=== PATIENT | female | born 1965 | race Two or more races ===

== ENCOUNTER 2022-08-04 14:46 | Inpatient (IN) | payer MEDICAID, OTHER ==
[~2022-08-04] VITALS: Ht 170.2 cm; Wt 63.5 kg
[2022-08-04] MEDS ORDERED: SODIUM CHLORIDE 0.9% 1000ML BAG (SEPSIS BOLUS) IV ONE (15:15)
[2022-08-04] MEDS ORDERED: PIPERACILLIN/TAZ 3.375G PREMIX 50 ML IV ONE (15:15)
[2022-08-04] MEDS ORDERED: VANCOMYCIN 1G PREMIX 200 ML IV ONE (15:15)
[2022-08-04] MEDS ORDERED: ONDANSETRON HCL 4MG/2ML INJ IV ONE (15:15)
[2022-08-04] MEDS ORDERED: ASPIRIN 81MG TABLET PO ONE (15:15)
[2022-08-04 16:05] LABS: HEMATOCRIT. 40.7 % (36.0-48.0); HEMOGLOBIN. 13.1 g/dL (12.0-16.0); MEAN CORPUSCULAR HEMOGLOBIN 29.6 pg (28.0-32.0); MEAN CORPUSCULAR VOLUME 91.5 fL (81.0-99.0); MEAN PLATELET VOLUME 8.3 fl (7.4-10.4); PLATELET 80 x1000/uL (130-400); RED BLOOD CELL COUNT 4.44 mill/uL (4.2-5.4); RED CELL DISTRIBUTION WIDTH 18.3 % (11.6-14.6)
[2022-08-04 16:07] LABS: INR 1.4; PARTIAL THROMBOPLASTIN TIME 41.2 sec (23.4-31.0); PROTHROMBIN TIME 15.1 sec (9.6-11.0)
[2022-08-04 16:13] LABS: CHLORIDE 85 mEq/L (98-107)
[2022-08-04] MEDS ORDERED: SODIUM BICARBONATE 8.4% 1 MEQ/ML 50ML SYR IV ONE (17:30)
[2022-08-04] MEDS ORDERED: SODIUM POLYSTYRENE SULFONATE 15 G/60 ML BOT PO ONE (17:30)
[2022-08-04] MEDS ORDERED: ALBUTEROL (0.083%) 2.5MG/3ML NEB HHN ONE (17:30)
[2022-08-04] MEDS ORDERED: DEXTROSE 50% WATER 50ML SYRINGE IV ONE (17:30)
[2022-08-04] MEDS ORDERED: INSULIN REGULAR (HUMULIN R) 300UNITS/3ML VIAL IV ONE (17:30)
[2022-08-04 17:39] LABS: PLATELET ESTIMATE DECREASED
[2022-08-04] MEDS ORDERED: IPRATROPIUM/ALBUTEROL 0.5-3(2.5)MG/3ML NEB HHN PRN (19:00)
[2022-08-04] MEDS ORDERED: SODIUM CHLORIDE 0.9% 1,000 ML IV SCH (19:00)
[2022-08-04] MEDS ORDERED: CLONIDINE 0.1MG TABLET PO PRN (19:00)
[2022-08-04] MEDS ORDERED: DIPHENHYDRAMINE 50MG/ML VIAL IV PRN (19:00)
[2022-08-04] MEDS ORDERED: SODIUM CHLORIDE 0.9% 1,000 ML IV ONE (19:00)
[2022-08-04] MEDS ORDERED: SODIUM BICARBONATE 8.4% 1 MEQ/ML 50ML SYR IV NR (19:45)
[2022-08-04] MEDS: SODIUM BICARBONATE 150 MEQ in DEXTROSE 5% WATER 1,000 ML IV SCH (23:47)
[2022-08-05] VITALS (46 sets, daily range): BP systolic 70–116; BP diastolic 41–72
[2022-08-05] MEDS: MORPHINE SULFATE 2 MG/ML CPJ (NOT FOR IM USE) IV PRN (00:23)
[2022-08-05 02:26] LABS: HEPATITIS B SURFACE AB < 3.1 mIU/mL
[2022-08-05 02:37] LABS: HEPATITIS B SURFACE ANTIGEN NEGATIVE
[2022-08-05] MEDS ORDERED: PIPERACILLIN/TAZOBACTAM 3.375 G in DEXTROSE 5% WATER 50 ML IV SCH ×2 (07:00→09:00)
[2022-08-05] MEDS: ONDANSETRON HCL 4MG/2ML INJ IV PRN ×2 (09:02→15:32)
[2022-08-05 09:17] LABS: HEMATOCRIT. 38.7 % (36.0-48.0); HEMOGLOBIN. 12.4 g/dL (12.0-16.0); MEAN CORPUSCULAR HEMOGLOBIN 29.5 pg (28.0-32.0); MEAN CORPUSCULAR VOLUME 91.6 fL (81.0-99.0); MEAN PLATELET VOLUME 8.7 fl (7.4-10.4); PLATELET 90 x1000/uL (130-400); RED BLOOD CELL COUNT 4.22 mill/uL (4.2-5.4); RED CELL DISTRIBUTION WIDTH 18.5 % (11.6-14.6)
[2022-08-05 09:37] LABS: CHLORIDE 88 mEq/L (98-107)
[2022-08-05] MEDS ORDERED: ALBUMIN HUMAN 25GM/100ML (25%) IV PRN (09:45)
[2022-08-05] MEDS: MIDODRINE HCL 5MG TABLET PO SCH ×3 (09:59→17:26)
[2022-08-05 11:00] LABS: PLATELET ESTIMATE DECREASED
[2022-08-05] MEDS: CEFEPIME 1,000 MG in DEXTROSE 5% WATER 50 ML IV SCH (11:00)
[2022-08-05] MEDS ORDERED: SODIUM CHLORIDE 0.9% 500 ML IV NR (11:00)
[2022-08-05] MEDS: SODIUM BICARBONATE 150 MEQ in DEXTROSE 5% WATER 1,000 ML IV SCH (12:07)
[2022-08-05] MEDS: METRONIDAZOLE 500MG TABLET PO SCH ×2 (14:00→22:34)
[2022-08-05] MEDS ORDERED: VANCOMYCIN 500MG PREMIX 100 ML IV SCH (18:00)
[2022-08-05] MEDS: NOREPINEPHRINE 8 MG in DEXT 5% WATER 242 ML IV PRN ×2 (18:07→18:36)
[2022-08-05] MEDS: ACETAMINOPHEN 325MG TABLET PO PRN (22:38)
[2022-08-06] VITALS (94 sets, daily range): BP systolic 76–127; BP diastolic 44–74
[2022-08-06] MEDS: NOREPINEPHRINE 8 MG in DEXT 5% WATER 242 ML IV PRN (04:13)
[2022-08-06 05:31] LABS: HEMATOCRIT. 34.1 % (36.0-48.0); MEAN CORPUSCULAR HEMOGLOBIN 29.2 pg (28.0-32.0); MEAN PLATELET VOLUME 8.3 fl (7.4-10.4); PLATELET 70 x1000/uL (130-400); RED BLOOD CELL COUNT 3.79 mill/uL (4.2-5.4)
[2022-08-06] MEDS: METRONIDAZOLE 500MG TABLET PO SCH ×3 (05:32→21:31)
[2022-08-06 05:52] LABS: PHOSPHORUS 6.2 mg/dL (2.5-4.9)
[2022-08-06 06:12] LABS: FERRITIN 1729 ng/mL (10-291)
[2022-08-06] MEDS ORDERED: PHENYLEPHRINE 100 MG in DEXT 5% WATER 240 ML IV STA ×3 (08:25→18:14)
[2022-08-06] MEDS: MIDODRINE HCL 2.5MG TABLET PO SCH ×3 (09:01→17:59)
[2022-08-06] MEDS: ONDANSETRON HCL 4MG/2ML INJ IV PRN (09:02)
[2022-08-06] MEDS: SODIUM BICARBONATE 150 MEQ in DEXTROSE 5% WATER 1,000 ML IV SCH (09:04)
[2022-08-06 09:18] LABS: NUCLEATED RED BLOOD CELLS 2 /100 WBC
[2022-08-06 09:19] LABS: PLATELET ESTIMATE DECREASED
[2022-08-06] MEDS ORDERED: SODIUM BICARBONATE 4% (2.4MEQ) 5ML VIAL IV ONE (10:39)
[2022-08-06] MEDS ORDERED: LIDOCAINE HCL 1% 30ML VIAL (10MG/ML) ONE (10:40)
[2022-08-06] MEDS: CEFEPIME 1,000 MG in DEXTROSE 5% WATER 50 ML IV SCH (11:00)
[2022-08-06] MEDS ORDERED: ALBUMIN HUMAN 25GM/500ML (5%) IV STA (11:26)
[2022-08-06] MEDS ORDERED: ALBUMIN HUMAN 25GM/500ML (5%) IV ONE (11:30)
[2022-08-06] MEDS ORDERED: VANCOMYCIN 500MG PREMIX 100 ML IV NR (12:00)
[2022-08-06] MEDS ORDERED: ALBUMIN HUMAN 5% 500 ML IV ONE (13:00)
[2022-08-06] MEDS ORDERED: NALOXONE HCL 0.4MG/ML VIAL IV PRN (14:45)
[2022-08-06] MEDS: ACETAMINOPHEN 325MG TABLET PO PRN (21:32)
[2022-08-07] VITALS (100 sets, daily range): BP systolic 78–131; BP diastolic 35–112
[2022-08-07] MEDS: MORPHINE SULFATE 2 MG/ML CPJ (NOT FOR IM USE) IV PRN ×2 (02:47→18:32)
[2022-08-07] MEDS: PHENYLEPHRINE 100 MG in DEXT 5% WATER 240 ML IV PRN ×2 (04:05→23:24)
[2022-08-07 04:56] LABS: HEMATOCRIT. 29.7 % (36.0-48.0); HEMOGLOBIN. 9.9 g/dL (12.0-16.0); MEAN CORPUSCULAR VOLUME 90.4 fL (81.0-99.0); MEAN PLATELET VOLUME 8.5 fl (7.4-10.4); RED BLOOD CELL COUNT 3.29 mill/uL (4.2-5.4); RED CELL DISTRIBUTION WIDTH 18.7 % (11.6-14.6)
[2022-08-07] MEDS: METRONIDAZOLE 500MG TABLET PO SCH ×3 (05:05→13:10)
[2022-08-07 05:25] LABS: PLATELET 49 x1000/uL (130-400)
[2022-08-07 05:53] LABS: PHOSPHORUS 5.7 mg/dL (2.5-4.9)
[2022-08-07] MEDS ORDERED: SODIUM CHLORIDE 0.9% 1,000 ML IV SCH (07:15)
[2022-08-07 07:18] LABS: NUCLEATED RED BLOOD CELLS 1 /100 WBC
[2022-08-07 07:20] LABS: PLATELET ESTIMATE DECREASED
[2022-08-07] MEDS ORDERED: LIDOCAINE HCL/PF 1% 10 MG/ML 5ML VIAL ONE (07:52)
[2022-08-07] MEDS: MIDODRINE HCL 2.5MG TABLET PO SCH (08:24)
[2022-08-07] MEDS ORDERED: VASOPRESSIN 20 UNIT in SODIUM CHLORIDE 0.9% 99 ML IV PRN (11:00)
[2022-08-07] MEDS: MIDODRINE HCL 5MG TABLET PO SCH ×2 (13:10→18:59)
[2022-08-07] MEDS: CEFEPIME 1,000 MG in DEXTROSE 5% WATER 50 ML IV SCH (13:10)
[2022-08-07] MEDS ORDERED: ALBUMIN HUMAN 12.5G/250ML (5%) IV PRN (14:45)
[2022-08-07] MEDS: ONDANSETRON HCL 4MG/2ML INJ IV PRN (18:59)
[2022-08-08] VITALS (103 sets, daily range): BP systolic 69–164; BP diastolic 30–108
[2022-08-08] MEDS: MIDODRINE HCL 5MG TABLET PO SCH ×5 (00:35→23:57)
[2022-08-08 02:52] LABS: VITAMIN B12 SERUM >2000 pg/mL pg/mL (211-911)
[2022-08-08 05:49] LABS: HEMOGLOBIN. 10.2 g/dL (12.0-16.0); MEAN CORPUSCULAR HEMOGLOBIN 30.2 pg (28.0-32.0); MEAN CORPUSCULAR VOLUME 91.4 fL (81.0-99.0); MEAN PLATELET VOLUME 9.2 fl (7.4-10.4); RED BLOOD CELL COUNT 3.39 mill/uL (4.2-5.4); RED CELL DISTRIBUTION WIDTH 18.7 % (11.6-14.6)
[2022-08-08] MEDS: MORPHINE SULFATE 2 MG/ML CPJ (NOT FOR IM USE) IV PRN (06:30)
[2022-08-08] MEDS: METRONIDAZOLE 500MG TABLET PO SCH ×3 (06:31→21:29)
[2022-08-08 07:41] LABS: PLATELET ESTIMATE MARKEDLY DECREASED
[2022-08-08 07:44] LABS: PLATELET 40 x1000/uL (130-400)
[2022-08-08] MEDS: ONDANSETRON HCL 4MG/2ML INJ IV PRN (07:44)
[2022-08-08] MEDS: VASOPRESSIN 20 UNIT in SODIUM CHLORIDE 0.9% 99 ML IV SCH ×2 (09:48→21:33)
[2022-08-08] MEDS ORDERED: SODIUM BICARBONATE 4% (2.4MEQ) 5ML VIAL IV ONE (10:55)
[2022-08-08] MEDS ORDERED: LIDOCAINE HCL 1% 10 MG/ML 10ML VIAL ONE (10:55)
[2022-08-08] MEDS: CEFEPIME 1,000 MG in DEXTROSE 5% WATER 50 ML IV SCH (11:00)
[2022-08-08] MEDS ORDERED: VANCOMYCIN 500MG PREMIX 100 ML IV NR (12:00)
[2022-08-08] MEDS: NOREPINEPHRINE 32 MG in DEXT 5% WATER 218 ML IV PRN (15:17)
[2022-08-09] VITALS (95 sets, daily range): BP systolic 76–124; BP diastolic 41–103
[2022-08-09] MEDS: PHENYLEPHRINE 100 MG in DEXT 5% WATER 240 ML IV PRN ×3 (03:21→22:29)
[2022-08-09 05:57] LABS: HEMATOCRIT. 32.1 % (36.0-48.0); HEMOGLOBIN. 10.1 g/dL (12.0-16.0); MEAN CORPUSCULAR HEMOGLOBIN 29.1 pg (28.0-32.0); MEAN CORPUSCULAR VOLUME 92.5 fL (81.0-99.0); MEAN PLATELET VOLUME 8.5 fl (7.4-10.4); PLATELET 68 x1000/uL (130-400); RED BLOOD CELL COUNT 3.47 mill/uL (4.2-5.4); RED CELL DISTRIBUTION WIDTH 18.3 % (11.6-14.6)
[2022-08-09] MEDS: MIDODRINE HCL 5MG TABLET PO SCH ×4 (06:34→23:53)
[2022-08-09] MEDS: METRONIDAZOLE 500MG TABLET PO SCH ×2 (06:34→14:18)
[2022-08-09] MEDS: VASOPRESSIN 20 UNIT in SODIUM CHLORIDE 0.9% 99 ML IV SCH ×2 (08:44→20:46)
[2022-08-09 08:49] LABS: PLATELET ESTIMATE DECREASED
[2022-08-09] MEDS ORDERED: LEVO100T MT (09:02)
[2022-08-09] MEDS ORDERED: MIDO10TA PO (09:02)
[2022-08-09] MEDS ORDERED: ALBUMIN HUMAN 12.5G/250ML (5%) IV PRN (09:30)
[2022-08-09] MEDS: HYDROCODONE/ACETAMINOPHEN 5/325MG TABLET PO PRN ×2 (11:30→14:20)
[2022-08-09] MEDS: ONDANSETRON HCL 4MG/2ML INJ IV PRN ×2 (11:38→20:57)
[2022-08-09] MEDS: CEFEPIME 1,000 MG in DEXTROSE 5% WATER 50 ML IV SCH (13:22)
[2022-08-09] MEDS: MEROPENEM 1,000 MG in SODIUM CHLORIDE 0.9% 100 ML IV SCH (18:46)
[2022-08-10] VITALS (97 sets, daily range): BP systolic 73–136; BP diastolic 41–104
[2022-08-10] MEDS: MIDODRINE HCL 5MG TABLET PO SCH ×3 (06:41→18:07)
[2022-08-10] MEDS: PHENYLEPHRINE 100 MG in DEXT 5% WATER 240 ML IV PRN ×2 (08:05→17:47)
[2022-08-10] MEDS: VASOPRESSIN 20 UNIT in SODIUM CHLORIDE 0.9% 99 ML IV SCH (09:34)
[2022-08-10 12:37] LABS: HEMATOCRIT. 33.8 % (36.0-48.0); MEAN CORPUSCULAR HEMOGLOBIN 30.2 pg (28.0-32.0); MEAN CORPUSCULAR VOLUME 92.5 fL (81.0-99.0); MEAN PLATELET VOLUME 8.4 fl (7.4-10.4); RED BLOOD CELL COUNT 3.65 mill/uL (4.2-5.4); RED CELL DISTRIBUTION WIDTH 18.3 % (11.6-14.6)
[2022-08-10 14:57] LABS: NUCLEATED RED BLOOD CELLS 2 /100 WBC
[2022-08-10 14:58] LABS: PLATELET ESTIMATE DECREASED
[2022-08-10 15:03] LABS: PLATELET 23 x1000/uL (130-400)
[2022-08-10] MEDS ORDERED: LACTULOSE 20G/30ML UDC PO SCH (15:30)
[2022-08-10] MEDS: ALBUMIN HUMAN 25GM/100ML (25%) IV SCH ×2 (18:06→20:51)
[2022-08-10] MEDS: MEROPENEM 1,000 MG in SODIUM CHLORIDE 0.9% 100 ML IV SCH (18:07)
[2022-08-10] MEDS: ONDANSETRON HCL 4MG/2ML INJ IV PRN (19:31)
[2022-08-10] MEDS ORDERED: VANCOMYCIN 500MG PREMIX 100 ML IV NR (20:00)
[2022-08-10 22:42] LABS: INR 2.5; PROTHROMBIN TIME 24.6 sec (9.6-11.0)
[2022-08-11] VITALS (100 sets, daily range): BP systolic 83–153; BP diastolic 32–89
[2022-08-11] MEDS: MIDODRINE HCL 5MG TABLET PO SCH ×4 (00:01→18:43)
[2022-08-11] MEDS: ALBUMIN HUMAN 25GM/100ML (25%) IV SCH ×3 (02:34→14:22)
[2022-08-11] MEDS: PHENYLEPHRINE 100 MG in DEXT 5% WATER 240 ML IV PRN ×2 (03:46→13:36)
[2022-08-11 05:54] LABS: HEMATOCRIT. 23.3 % (36.0-48.0); HEMOGLOBIN. 7.8 g/dL (12.0-16.0); MEAN CORPUSCULAR HEMOGLOBIN 30.9 pg (28.0-32.0); MEAN CORPUSCULAR VOLUME 92.3 fL (81.0-99.0); MEAN PLATELET VOLUME 8.5 fl (7.4-10.4); RED BLOOD CELL COUNT 2.53 mill/uL (4.2-5.4); RED CELL DISTRIBUTION WIDTH 18.8 % (11.6-14.6)
[2022-08-11 06:56] LABS: NUCLEATED RED BLOOD CELLS 1 /100 WBC
[2022-08-11 06:57] LABS: PLATELET ESTIMATE MARKEDLY DECREASED
[2022-08-11 06:58] LABS: PLATELET 18 x1000/uL (130-400)
[2022-08-11] MEDS ORDERED: METOCLOPRAMIDE HCL 10MG/2ML VIAL IV PRN (10:00)
[2022-08-11] MEDS ORDERED: MORPHINE SULFATE 2 MG/ML CPJ (NOT FOR IM USE) IV PRN (10:00)
[2022-08-11] MEDS: MEROPENEM 1,000 MG in SODIUM CHLORIDE 0.9% 100 ML IV SCH (18:43)
[2022-08-11] MEDS: VASOPRESSIN 20 UNIT in SODIUM CHLORIDE 0.9% 99 ML IV SCH (19:34)
[2022-08-12] VITALS (95 sets, daily range): BP systolic 78–131; BP diastolic 32–73
[2022-08-12] MEDS: MIDODRINE HCL 5MG TABLET PO SCH ×4 (00:25→17:46)
[2022-08-12] MEDS: PHENYLEPHRINE 100 MG in DEXT 5% WATER 240 ML IV PRN ×2 (03:25→18:27)
[2022-08-12 05:11] LABS: HEMATOCRIT. 29.8 % (36.0-48.0); HEMOGLOBIN. 10.1 g/dL (12.0-16.0); MEAN CORPUSCULAR HEMOGLOBIN 31.3 pg (28.0-32.0); MEAN CORPUSCULAR VOLUME 92.2 fL (81.0-99.0); MEAN PLATELET VOLUME 8.8 fl (7.4-10.4); RED BLOOD CELL COUNT 3.24 mill/uL (4.2-5.4); RED CELL DISTRIBUTION WIDTH 17.5 % (11.6-14.6)
[2022-08-12 05:15] LABS: INR 1.8; PROTHROMBIN TIME 18.7 sec (9.6-11.0)
[2022-08-12 05:25] LABS: PLATELET 49 x1000/uL (130-400)
[2022-08-12 07:15] LABS: NUCLEATED RED BLOOD CELLS 1 /100 WBC; PLATELET ESTIMATE MARKEDLY DECREASED
[2022-08-12] MEDS: FOLIC ACID 1MG TABLET PO SCH (09:28)
[2022-08-12] MEDS ORDERED: NALOXONE HCL 0.4MG/ML VIAL IV PRN (13:15)
[2022-08-12] MEDS: VASOPRESSIN 20 UNIT in SODIUM CHLORIDE 0.9% 99 ML IV SCH (14:02)
[2022-08-12] MEDS: MEROPENEM 1,000 MG in SODIUM CHLORIDE 0.9% 100 ML IV SCH (17:46)
[2022-08-13] VITALS (96 sets, daily range): BP systolic 72–170; BP diastolic 36–111
[2022-08-13] MEDS: MIDODRINE HCL 5MG TABLET PO SCH ×4 (00:48→18:11)
[2022-08-13] MEDS: VASOPRESSIN 20 UNIT in SODIUM CHLORIDE 0.9% 99 ML IV SCH ×2 (05:03→22:49)
[2022-08-13] MEDS: FOLIC ACID 1MG TABLET PO SCH (09:17)
[2022-08-13] MEDS: PHENYLEPHRINE 100 MG in DEXT 5% WATER 240 ML IV PRN (09:17)
[2022-08-13 11:30] LABS: HEMATOCRIT 30.2 % (36.0-48.0); MEAN CORPUSCULAR HEMOGLOBIN 30.6 pg (28.0-32.0); MEAN CORPUSCULAR VOLUME 92.4 fL (81.0-99.0); PLATELET 55 x1000/uL (130-400); RED BLOOD CELL COUNT 3.26 mill/uL (4.2-5.4); RED CELL DISTRIBUTION WIDTH 17.6 % (11.6-14.6)
[2022-08-13] MEDS: MEROPENEM 1,000 MG in SODIUM CHLORIDE 0.9% 100 ML IV SCH (18:09)
[2022-08-13] MEDS: ONDANSETRON HCL 4MG/2ML INJ IV PRN (18:54)
[2022-08-13] MEDS: HYDROCODONE/ACETAMINOPHEN 5/325MG TABLET PO PRN (20:38)
[2022-08-14] VITALS (63 sets, daily range): BP systolic 59–147; BP diastolic 35–117
[2022-08-14] MEDS: MIDODRINE HCL 5MG TABLET PO SCH ×3 (00:11→11:45)
[2022-08-14] MEDS: NOREPINEPHRINE 32 MG in DEXT 5% WATER 218 ML IV PRN (02:51)
[2022-08-14 05:09] LABS: HEMOGLOBIN. 10.1 g/dL (12.0-16.0); MEAN PLATELET VOLUME 9.1 fl (7.4-10.4); RED BLOOD CELL COUNT 3.27 mill/uL (4.2-5.4); RED CELL DISTRIBUTION WIDTH 20.2 % (11.6-14.6)
[2022-08-14 05:36] LABS: PLATELET 45 x1000/uL (130-400)
[2022-08-14] MEDS ORDERED: DEXTROSE 50% WATER 50ML SYRINGE IV ONE (05:55)
[2022-08-14 08:14] LABS: NUCLEATED RED BLOOD CELLS 5 /100 WBC; PLATELET ESTIMATE MARKEDLY DECREASED
[2022-08-14] MEDS: FOLIC ACID 1MG TABLET PO SCH (09:00)
[2022-08-14] MEDS ORDERED: ALBUMIN HUMAN 25GM/500ML (5%) IV PRN (09:45)
[2022-08-14] MEDS ORDERED: BLOOD SUGAR DIAGNOSTIC STRIP TEST SCH (12:00)
[2022-08-14] MEDS ORDERED: SODIUM BICARBONATE 100 MEQ in DEXTROSE 5% WATER 1,000 ML IV SCH (12:00)
== END 2022-08-14 14:40 | disposition short-term general hospital (02) | DRG 721 ==
LOC: ER 14:46 → 5EST 17:39 → EDBEDREQTM 17:44 → EDBEDREQ 17:44 → ENRESERV 19:35 → CVICU 08-05 14:24
PROVIDERS: ADMIT Internal Medicine; ATTEND Internal Medicine
PROC: 02HV33Z Insertion of Infusion Device into Superior Vena Cava, Percutaneous Approach (ICD-10-PCS; principal; 2022-08-05)
PROC: B548ZZA Ultrasonography of Superior Vena Cava, Guidance (ICD-10-PCS; 2022-08-05)
PROC: 5A1D70Z Performance of Urinary Filtration, Intermittent, Less than 6 Hours Per Day (ICD-10-PCS; 2022-08-05)
PROC: 02HV33Z Insertion of Infusion Device into Superior Vena Cava, Percutaneous Approach (ICD-10-PCS; 2022-08-07)
PROC: B548ZZA Ultrasonography of Superior Vena Cava, Guidance (ICD-10-PCS; 2022-08-07)
PROC: 5A1D70Z Performance of Urinary Filtration, Intermittent, Less than 6 Hours Per Day (ICD-10-PCS; 2022-08-07)
PROC: 0W9G3ZZ Drainage of Peritoneal Cavity, Percutaneous Approach (ICD-10-PCS; 2022-08-08)
PROC: 30233R1 Transfusion of Nonautologous Platelets into Peripheral Vein, Percutaneous Approach (ICD-10-PCS; 2022-08-08)
PROC: 5A1D70Z Performance of Urinary Filtration, Intermittent, Less than 6 Hours Per Day (ICD-10-PCS; 2022-08-10)
PROC: 30233K1 Transfusion of Nonautologous Frozen Plasma into Peripheral Vein, Percutaneous Approach (ICD-10-PCS; 2022-08-11)
PROC: 0W9G3ZZ Drainage of Peritoneal Cavity, Percutaneous Approach (ICD-10-PCS; 2022-08-12)
PROC: 5A1D70Z Performance of Urinary Filtration, Intermittent, Less than 6 Hours Per Day (ICD-10-PCS; 2022-08-12)
DX: T80.211A Bloodstream infection due to central venous catheter, initial encounter (principal); A41.9 Sepsis, unspecified organism; E43 Unspecified severe protein-calorie malnutrition; D61.818 Other pancytopenia; I31.39 Other pericardial effusion (noninflammatory); D68.69 Other thrombophilia; E87.1 Hypo-osmolality and hyponatremia; D68.9 Coagulation defect, unspecified; D69.6 Thrombocytopenia, unspecified; K72.10 Chronic hepatic failure without coma; I12.0 Hypertensive chronic kidney disease with stage 5 chronic kidney disease or end stage renal disease; N18.6 End stage renal disease; E87.5 Hyperkalemia; B19.20 Unspecified viral hepatitis C without hepatic coma; R18.8 Other ascites; Z20.822 Contact with and (suspected) exposure to COVID-19; I34.0 Nonrheumatic mitral (valve) insufficiency; K80.20 Calculus of gallbladder without cholecystitis without obstruction; K74.60 Unspecified cirrhosis of liver; D72.821 Monocytosis (symptomatic); Y84.8 Other medical procedures as the cause of abnormal reaction of the patient, or of later complication, without mention of misadventure at the time of the procedure; Z99.2 Dependence on renal dialysis; Z68.21 Body mass index [BMI] 21.0-21.9, adult; Y92.89 Other specified places as the place of occurrence of the external cause
CPT/HCPCS: 36415; 36430; 36573; 49083; 71045; 74176; 76700; 80048; 80053; 80076; 80202; 82040; 82140; 82248; 82607; 82728; 82746; 82962; 83540; 83550; 83605; 83615; 83735; 83880; 84100; 84145; 84484; 85025; 85027; 85049; 86706; 86803; 86850; 86900; 86920; 86927; 87340; 87426; 88108; 88312; 93005; 93306; 93970; 99291; C1725; J0692; J1815; J2185; J2270; J2370; J2405; J2543; J2765; J3370; J3490; J7030; J7050; J7060; J7070; P9016; P9017; P9034; P9041; P9047; P9035; P9036